=== PATIENT | male | born 1995 | race Two or more races ===

== ENCOUNTER 2024-08-08 19:51 | Emergency (ER) | payer OTHER, SELFPAY ==
[2024-08-08 19:58] VITALS: BP 140/83; PULSE 120; RESP 18; TEMP 36.9; O2SAT 96
[2024-08-08 20:00] VITALS: BMI 23.7
--- NOTE | 2024-08-08 20:05 | PD.EDADULT ---
ED General RME/HPI General Chief complaint: General Adult/Misc Complain Stated complaint: NEEDLE STICK Time Seen by Provider: 08/08/24 20:08 Source: patient Arrival date/time: 08/08/24 19:51 Mode of arrival: ambulatory Limitations: no limitations RME / HPI RME / HPI narrative: --- DR. 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 Patient states it went through his glove but felt superficial however there was blood on the glove. He immediately removed the gloves and was able to irrigate and used Betadine on his finger. No pain. No weakness or numbness. Related Data Previous Rx's ?Medication ?Instructions ?Recorded emtricitabine 200 mg-tenofovir 1 tab PO QDAY #30 tabs 08/08/24 disoproxil fumarate 300 mg tablet (Truvada) raltegravir 400 mg tablet 400 mg PO BID #60 tabs 08/08/24 ([facility]) Allergies Allergy/AdvReac Type Severity Reaction Status Date / Time No Known Allergies Allergy Verified 08/08/24 19:52 Review of Systems Review of Systems Systems Reviewed: All systems reviewed, normal except as documented Past Medical History Past Medical History CARDIAC: Negative Congestive Heart Failure RESPIRATORY: Negative Chronic Obstructive Pulmonary Disease (COPD) GENITOURINARY: Negative Renal Disease ENDOCRINE: Negative Diabetes Mellitus Type 1 or Diabetes Mellitus Type 2 Social History SMOKING STATUS: Never smoker ED Exam General Limitations: Present no limitations General appearance: Present alert and in no apparent distress Head Head exam: Present atraumatic, normocephalic and normal inspection Eye Eye exam: Present normal appearance, PERRL and EOMI ENT ENT exam: Present normal exam, normal oropharynx, TM's normal bilaterally and normal external ear exam Neck Neck exam: Present normal inspection and full ROM Chest Chest inspection: Present normal inspection and symmetric chest wall rise Respiratory Respiratory exam: Present normal lung sounds bilaterally Cardiovascular Cardiovascular exam: Present regular rate, normal rhythm and normal heart sounds Abdominal Exam Abdominal exam: Present normal bowel sounds Extremities Exam Extremities exam: Present normal inspection and full ROM Back Exam Back exam: Present normal inspection and full ROM Neurological Exam Neurological exam: Present alert, oriented X3 and CN II-XII intact Psychiatric Psychiatric exam: Present normal affect and normal mood; Absent depressed Skin Skin exam: Present warm, dry, intact and normal color Course Quality Measures none Orders Category Date Time Status HIV (1&2) Antibody Rapid Stat Lab 08/08/24 20:35 Completed Hepatitis B Surface Ab Stat Lab 08/08/24 20:35 Completed Hepatitis B Surface Antigen Stat Lab 08/08/24 21:35 Completed Hepatitis C Antibody Stat Lab 08/08/24 20:35 Completed EMTRICITABINE/TENOFOVIR Dspk#3 [Truvada Dspk #3] Med 08/08/24 22:30 Discontinued 1 tab PO X1 ONE EMTRICITABINE/TENOFOVIR Dspk#3 [Truvada Dspk #3] Med 08/08/24 21:59 Discontinued 3 tab PO X1 ONE EMTRICITABINE/TENOFOVIR Dspk#3 [Truvada Dspk #3] Med 08/08/24 22:00 Discontinued 3 tab PO X1 ONE RALTEGRAVIR POTASSIUM Dspk#6 [[facility] Dspk#6] Med 08/08/24 21:59 Discontinued 6 tab PO X1 ONE Vital Signs Vital signs: Vital Signs Temperature 98.4 F 08/08/24 19:58 Pulse Rate 120 H 08/08/24 19:58 Respiratory Rate 18 08/08/24 19:58 Blood Pressure 140/83 H 08/08/24 19:58 Pulse Oximetry (%) 96 08/08/24 19:58 Oxygen Delivery Method Room Air 08/08/24 19:58 [facility] Patient data External records reviewed:: [facility] previous records Clinical information provided by:: patient Social determinants that could affect healthcare access:: none Patient has the following chronic illnesses:: None How is presenting disease/condition affected by chronic disease/condition?: no chronic disease Evaluation data The following diagnostics were reviewed and interpreted by me:: lab results and other (specify) (None) Lab and/or radiology exams considered but not ordered:: None Interpretation Summary: See narrative Medications Medications considered but not ordered:: None Medication administrations:: Medication Administration History Discontinued Medications Emtricitabine/Tenofovir (Emtricitabine 200 Mg/Tenofovir 300 Mg Tab #3pk) 3 tab PO X1 ONE Stop: 08/08/24 22:00 Last Admin: 08/08/24 22:32 Dose: Not Given Documented By: AC Non-Admin Reason: Discontinued Emtricitabine/Tenofovir (Emtricitabine 200 Mg/Tenofovir 300 Mg Tab #3pk) 3 tab PO X1 ONE Stop: 08/08/24 22:01 Last Admin: 08/08/24 22:28 Dose: 3 tab Documented By: ERA Emtricitabine/Tenofovir (Emtricitabine 200 Mg/Tenofovir 300 Mg Tab #3pk) 1 tab PO X1 ONE Stop: 08/08/24 22:31 Last Admin: 08/08/24 22:31 Dose: Not Given Documented By: JUAN Non-Admin Reason: Discontinued Raltegravir (Raltegravir Potassium 400 Mg Tab #6pk) 6 tab PO X1 ONE Stop: 08/08/24 22:00 Last Admin: 08/08/24 22:25 Dose: 6 tab Documented By: ERA As above, if any Consultations Consultation(s) initiated? (list below): No Diagnosis Differential Diagnosis ED Complaint MDM: Needlestick, abrasion, laceration, Most likely diagnosis given after review of the tests above:: Encounter related to worker's compensation claim, Exposure to body fluid due to accidental needlestick injury Admission Indicated Admission indicated?: not indicated Explain why admission is indicated or not indicated:: No significant findings indicative of admission. Admission Request Was there a request for admission?: No Disposition Plan Disposition Plan: Discharge Discharge Attestation Discharge Attestation: The patient and all family members were given an opportunity to ask questions and understood the discharge instructions. Discharge instructions specifically effects, indications for sooner follow up or return to the emergency department, and the expected course of current diagnosis. Patient condition: Stable Medical Decision Making MDM Narrative MDM Narrative: ? Scribe Attestation: Lizzie Abel am scribing for and in the presence of Dr. Garner. Provider Notation: Although this document has been carefully reviewed, there may still be some phonetic and other typographical errors. These errors are purely grammatical due to imperfections in the software program and should not be construed in any way to compromise the substance of the patient's medical care during this visit. Differential Diagnosis Differential Diagnosis: Needlestick, abrasion, laceration, Lab Data Labs: Lab Results 08/08/24 08/08/24 Range/Units 20:35 21:35 Hep Bs Antigen Non Reactive (Non React) Hep Bs Antibody Reactive (Immune) (Immune) Hepatitis C Antibody Non Reactive (Non React) HIV 1&2 Antibody Rapid Non-Reactive Discharge Plan Plan Patient Disposition: HOME (Self Care) Patient condition on transfer: Stable Prescriptions/Referrals Prescriptions/Med Rec: New [facility] 400 mg tablet 400 mg PO BID Qty: 60 0RF emtricitabine-tenofovir (TDF) [Truvada] 200-300 mg tablet 1 tab PO QDAY Qty: 30 0RF Problem List Clinical Impression: Encounter related to worker's compensation claim, Exposure to body fluid due to accidental needlestick injury Patient/Caregiver Discharge Instructions Additional Instructions: At this time we we will give you the medications that you can take if you feel comfortable. You may talk to your primary care in the next 1 week for any other additional recommendations. Please follow-up with Worker's Comp. on your next business day which is tomorrow. Return to the emergency department for any worsening symptoms, any bleeding or pain in your digit, or any other concerns. You need to follow through to get the results of all your laboratory findings and the patient's findings with your primary care physician and/or occupational health. Please follow the prescription dose. Return to the emergency department for worsening symptoms or any other concerns. Print Language: Upper Sorbian Stand Alone Forms: [employer] Award Info., Patient Portal Info Letter
[2024-08-08 21:59] LABS: Hepatitis B Surface Ab Reactive (Immune) (Immune); Hepatitis C Antibody Non Reactive (Non React)
[2024-08-08 22:11] LABS: HIV (1&2) Antibody Rapid Non-Reactive
[2024-08-08] MEDS: RALTEGRAVIR POTASSIUM 400 MG TAB #6PK 6 TAB PO (22:25)
[2024-08-08] MEDS: EMTRICITABINE 200 MG/TENOFOVIR 300 MG TAB #3PK 3 DSPK PO (22:28)
[2024-08-08 22:35] LABS: Hepatitis B Surface Antigen Non Reactive (Non React)
== END 2024-08-08 22:33 | disposition home or self-care (01) ==
LOC: SERX 20:16
PROVIDERS: Emergency Provider Emergency Medicine; PCP Internal Medicine
DX: Z02.6 Encounter for examination for insurance purposes (principal); S61.237A Puncture wound without foreign body of left little finger without damage to nail, initial encounter; W46.1XXA Contact with contaminated hypodermic needle, initial encounter; Y93.F9 Activity, other caregiving; Y92.230 Patient room in hospital as the place of occurrence of the external cause; Y99.0 Civilian activity done for income or pay; Z77.21 Contact with and (suspected) exposure to potentially hazardous body fluids
CPT/HCPCS: 36415; 86703; 86706; 86803; 87340; 99283; J8499